=== PATIENT | female | born 1990 | race Caucasian/White ===

== ENCOUNTER 2022-01-25 17:23 | Emergency (ER) | payer OTHER ==
[2022-01-25 18:21] LABS: BASOPHIL 0.3 % (0-2); EOSINOPHIL 4.1 % (0-5); HCT 42.1 % (37.0-47.0); HGB 12.6 g/dl (12.5-16.0); LYMPHOCYTE 21.6 % (15-48); MCH 20.8 pg (25.0-31.0); MCHC 29.9 g/dL (32.0-36.0); MCV 69.6 fL (78.0-100.0); MONOCYTE 7.5 % (0-12); MPV 9.2 fL (6.0-9.5); NEUTROPHIL 66.2 % (41-80); NRBC 0; PLT 432 K/uL (150-400); RBC 6.05 M/uL (4.20-5.40); RDW 21.2 % (11.5-14.0); WBC 9.7 K/uL (4.0-10.5)
[2022-01-25 18:36] LABS: ALBUMIN 3.2 g/dL (3.4-5.0); BILIRUBIN - TOTAL 0.6 mg/dL (0.2-1.0); BUN/CREAT RATIO (CALC) 8.6 RATIO; CREATININE 0.93 mg/dL (0.51-0.95); GLOBULIN (CALCULATION) 3.6 g/dL; POTASSIUM 3.6 mmol/L (3.5-5.1); TOTAL PROTEIN 6.8 g/dL (6.4-8.2)
[2022-01-25 21:14] LABS: CORONAVIRUS 2019 SARS-COV-2 NEGATIVE (NEGATIVE); INFLUENZA A NAA NEGATIVE (NEGATIVE)
[2022-01-25] MEDS ORDERED: BUMETANIDE0.5 MG PO (22:03)
== END 2022-01-25 22:23 | disposition home or self-care (01) ==
LOC: FER 17:23
PROVIDERS: Emergency Medicine; Internal Medicine
DX: R06.02 Shortness of breath (principal); R22.42 Localized swelling, mass and lump, left lower limb; R79.89 Other specified abnormal findings of blood chemistry; F17.210 Nicotine dependence, cigarettes, uncomplicated; Z88.0 Allergy status to penicillin; Z20.822 Contact with and (suspected) exposure to COVID-19
CPT/HCPCS: 36415; 71275; 80053; 83880; 84484; 84703; 85025; 93005; 93971; J1644; Q9967; U0002